=== PATIENT | female | born 1965 | race Caucasian/White ===

== ENCOUNTER 2022-09-22 02:00 | Emergency (ER) | payer MEDICAID ==
[~2022-09-22] VITALS: Ht 180.3 cm; Wt 83.0 kg
[2022-09-22 03:33] LABS: BASOPHILS % 0.5 % (0.0-2.0); EOSINOPHILS % 1.1 % (0.0-5.0); HEMATOCRIT. 38.6 % (36.0-48.0); HEMOGLOBIN. 12.7 g/dL (12.0-16.0); LYMPHOCYTES % 32.7 % (20.0-50.0); MEAN CORPUSCULAR HEMOGLOBIN 26.4 pg (28.0-32.0); MEAN CORPUSCULAR VOLUME 80.1 fL (81.0-99.0); MEAN PLATELET VOLUME 8.2 fl (7.4-10.4); MONOCYTES % 6.8 % (2.0-8.0); NEUTROPHILS % 58.9 % (40.0-76.0); PLATELET 359 x1000/uL (130-400); RED BLOOD CELL COUNT 4.82 mill/uL (4.2-5.4); RED CELL DISTRIBUTION WIDTH 15.4 % (11.6-14.6)
[2022-09-22 03:42] LABS: CHLORIDE 109 mEq/L (98-107)
[2022-09-22 06:30] VITALS: BP 162/95
[2022-09-22] MEDS ORDERED: TOPUD PO (06:32)
== END 2022-09-22 06:39 | disposition home or self-care (01) ==
LOC: ER 02:00
DX: R07.9 Chest pain, unspecified (principal); I10 Essential (primary) hypertension; Z98.51 Tubal ligation status
CPT/HCPCS: 36415; 71045; 80053; 84484; 85025; 85379; 93005; 99285